=== PATIENT | female | born 1990 | race Two or more races ===

== ENCOUNTER 2025-03-27 02:01 | Emergency (ER) | payer OTHER | END 2025-03-27 03:44 | disposition left against medical advice (07) | LOC: ER 02:09 | DX: N93.9 Abnormal uterine and vaginal bleeding, unspecified (principal); Z53.21 Procedure and treatment not carried out due to patient leaving prior to being seen by health care provider ==

== ENCOUNTER 2025-03-27 17:30 | Emergency (ER) | payer OTHER ==
[~2025-03-27] VITALS: Ht 177.8 cm; Wt 63.5 kg
[2025-03-27] MEDS: IV NS 0.9% 1,000 ML BAG IV ONE (19:13)
[2025-03-27 19:40] LABS: PLATELET COUNT (AUTO) 234 K/uL (150-450); RED BLOOD CELL COUNT(AUTO) 5.15 MIL/uL (4.0-5.2); RED CELL DISTRIBUTION WIDTH 13.9 % (11.5-15.0); WHITE BLOOD COUNT (AUTO) 6.8 K/uL (4.3-11.0)
[2025-03-27 19:46] LABS: CALCIUM, SERUM 8.8 mg/dL (8.5-10.1); CREATININE 0.8 mg/dL (0.6-1.3); SODIUM SERUM 137.0 mmol/L (136-145); UREA NITROGEN, BLOOD 20.0 mg/dL (7-18)
[2025-03-27 19:49] LABS: APPEARANCE,URINE SLIGHTLY CLOUDY (CLEAR); BLOOD, URINE TRACE-INTA Ery/uL (NEGATIVE); LEUKOCYTE ESTERASE ,URINE NEGATIVE (NEGATIVE); NITRITE, URINE POSITIVE (NEGATIVE); UGLUCOSE NEGATIVE (NEGATIVE)
[2025-03-27 19:56] LABS: INR 0.95 (0.91-1.10)
[2025-03-27 20:00] LABS: PREGNANCY TEST SERUM QUAN 0.0 mIU/mL (0-6)
[2025-03-27 20:33] VITALS: BP 131/79; TEMP 98.7; O2SAT 99
[2025-03-27 20:44] LABS: SQUAMOUS EPITHELIAL CELL,UR Moderate /HPF (None Seen)
[2025-03-27 20:45] LABS: ADD URINE CULTURE YES
== END 2025-03-27 20:35 | disposition home or self-care (01) ==
LOC: ER 17:35
DX: N93.8 Other specified abnormal uterine and vaginal bleeding (principal); R10.20 Pelvic and perineal pain unspecified side
CPT/HCPCS: 99284; 96360; 76856; 85025; 80048; 81001; 36415; 85730; 86850; 84702; J7030; 87086-TC